=== PATIENT | female | born 1995 | race Caucasian/White ===

== ENCOUNTER 2024-03-15 19:43 | Emergency (ER) | payer OTHER ==
[~2024-03-15] VITALS: Ht 170.2 cm; Wt 62.0 kg
[2024-03-15 19:49] VITALS: BP 116/66; PULSE 76; RESP 16; TEMP 37.2; O2SAT 100
[2024-03-15] MEDS ORDERED: NAPR-1074 MT (21:27)
== END 2024-03-15 21:43 | disposition home or self-care (01) ==
LOC: ER 19:43
DX: M79.671 Pain in right foot (principal); F19.90 Other psychoactive substance use, unspecified, uncomplicated; Z88.0 Allergy status to penicillin
CPT/HCPCS: 73610; 73630; 99284